=== PATIENT | female | born 1965 | race American Indian/Alaskan Native ===

== ENCOUNTER 2016-10-27 13:26 | Outpatient (CLI) | payer BC ==
--- NOTE | 2016-10-28 10:39 | XRay Report ---
Bilateral knees, 3 views of each: Knee pain. Periarticular spurring is identified involving the medial compartment of the left knee. The articular surfaces are smooth and the knee joint spaces are preserved. There is normal alignment of the joint. There is no swelling and no effusion. Larger periarticular spurs are identified involving the medial joint compartment of the right knee with suspicion of knee joint space narrowing in the frontal projection which is not supported in the lateral projection. The articular surfaces are smooth. The joint is aligned. No swelling and no effusion. 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 Questionable narrowing of the right medial joint space.
== END 2016-10-27 13:27 | disposition home or self-care (01) ==
LOC: SPVIMAG 13:26
PROVIDERS: ATTEND Internal Medicine
DX: M17.0 Bilateral primary osteoarthritis of knee (principal)